=== PATIENT | female | born 1990 | race Two or more races ===

== ENCOUNTER 2017-11-04 23:27 | Emergency (ER) | payer SELFPAY ==
[~2017-11-04] VITALS: Ht 170.2 cm; Wt 54.4 kg
[2017-11-04 23:51] VITALS: BP 115/75
[2017-11-05] MEDS ORDERED: LIDOCAINE VISCOUS 2% UD 15 ML UDC ONE (02:04)
== END 2017-11-05 02:40 | disposition home or self-care (01) ==
LOC: ER 23:29
DX: S09.8XXA Other specified injuries of head, initial encounter (principal); H61.22 Impacted cerumen, left ear; Y04.2XXA Assault by strike against or bumped into by another person, initial encounter; Y93.89 Activity, other specified; Y92.89 Other specified places as the place of occurrence of the external cause; Y99.8 Other external cause status
CPT/HCPCS: 70450-TC; A4606; Z7610

== ENCOUNTER 2017-11-05 07:08 | Emergency (ER) | payer SELFPAY ==
[~2017-11-05] VITALS: Ht 170.2 cm; Wt 54.4 kg
[2017-11-05 07:08] VITALS: BP 116/71
[2017-11-05] MEDS ORDERED: AMOXICILLIN TRIHYDRATE 250 MG CAPSULE ONE (07:24)
[2017-11-05] MEDS ORDERED: HYDROCODONE/APAP 5/325MG 1 EACH TABLET ONE (07:24)
[2017-11-05] MEDS ORDERED: IBUPROFEN 400 MG TABLET ONE (07:25)
--- NOTE | 2017-11-05 07:29 | NUR ---
PT AMBULATORY WITH STEADY GAIT. PER PT WILL GO HOME WITH TAXI
[2017-11-05] MEDS ORDERED: IBUPROFEN 400 MG TABLET PO ONE (07:30)
[2017-11-05] MEDS ORDERED: HYDROCODONE/APAP 5/325MG 1 EACH TABLET PO ONE (07:30)
[2017-11-05] MEDS ORDERED: AMOXICILLIN TRIHYDRATE 250 MG CAPSULE PO ONE (07:30)
== END 2017-11-05 07:31 | disposition home or self-care (01) ==
LOC: ER 07:11
DX: H66.92 Otitis media, unspecified, left ear (principal); Y04.8XXA Assault by other bodily force, initial encounter; Y92.89 Other specified places as the place of occurrence of the external cause; Y93.89 Activity, other specified; Y99.8 Other external cause status
CPT/HCPCS: A4606; Z7610

== ENCOUNTER 2019-09-09 03:16 | Emergency (ER) | payer SELFPAY ==
[~2019-09-09] VITALS: Ht 170.2 cm; Wt 58.1 kg
[2019-09-09 03:22] VITALS: BP 110/65
--- NOTE | 2019-09-09 03:37 | NUR ---
URINE AND STREP SENT TO LAB
[2019-09-09] MEDS ORDERED: AMOXICILLIN TRIHYDRATE 250 MG CAPSULE ONE (04:12)
[2019-09-09] MEDS ORDERED: DEXAMETHASONE SOD PHOSPHATE 10 MG/ML VIAL ONE (04:12)
[2019-09-09] MEDS ORDERED: AMOXICILLIN TRIHYDRATE 250 MG CAPSULE PO ONE (04:30)
[2019-09-09] MEDS ORDERED: DEXAMETHASONE SOD PHOSPHATE 10 MG/ML VIAL IV ONE (04:30)
== END 2019-09-09 04:25 | disposition home or self-care (01) ==
LOC: ER 03:18
DX: J02.0 Streptococcal pharyngitis (principal)
CPT/HCPCS: 84703; 87880; 96374; 99283; J1100; 86403-TC

== ENCOUNTER 2021-12-03 12:31 | Emergency (ER) | payer OTHER ==
[~2021-12-03] VITALS: Ht 170.2 cm; Wt 51.7 kg
[2021-12-03 12:39] VITALS: BP 116/70
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
--- NOTE | 2021-12-03 13:33 | NUR ---
Patient discharged to home in stable condition. Written and verbal after care instructions given. Patient verbalizes understanding of instruction.
== END 2021-12-03 13:34 | disposition home or self-care (01) ==
LOC: ER 12:53
DX: O26.899 Other specified pregnancy related conditions, unspecified trimester (principal); M25.551 Pain in right hip; M25.561 Pain in right knee; Z3A.00 Weeks of gestation of pregnancy not specified

== ENCOUNTER 2021-12-12 07:30 | Emergency (ER) | payer OTHER ==
[~2021-12-12] VITALS: Ht 170.2 cm; Wt 54.4 kg
--- NOTE | 2021-12-12 07:51 | NUR ---
Patient came in to the er c/o dysuria 7 weeks , A0. On room air, breathing evenly and unlabored. Kept comfortable, will continue to monitor accordingly.
[2021-12-12 08:31] LABS: BILIRUBIN,URINE NEGATIVE (NEGATIVE); COLOR,URINE YELLOW (YELLOW); LEUKOCYTE ESTERASE ,URINE NEGATIVE (NEGATIVE); NITRITE, URINE NEGATIVE (NEGATIVE); PH,URINE 5.5 (5.0-8.0); PROTEIN,URINE NEGATIVE (NEGATIVE); UGLUCOSE NEGATIVE (NEGATIVE); UROBILINOGEN,URINE 0.2 EU/dL (0.2)
--- NOTE | 2021-12-12 10:25 | NUR ---
Patient discharged to home in stable condition. Written and verbal after care instructions given. Patient verbalizes understanding of instruction.
[2021-12-12 10:26] VITALS: BP 103/61
== END 2021-12-12 10:26 | disposition home or self-care (01) ==
LOC: ER 07:40
DX: O26.899 Other specified pregnancy related conditions, unspecified trimester (principal); R30.0 Dysuria; Z3A.00 Weeks of gestation of pregnancy not specified; F32.A Depression, unspecified
CPT/HCPCS: 36415; 84702-TC; 87086-TC